=== PATIENT | male | born 1955 | race Caucasian/White ===

== ENCOUNTER 2018-05-28 08:51 | Inpatient (IN) | payer OTHER, MEDICAID, MEDICARE ==
[~2018-05-28 08:51] MED LIST: CEFAZOLIN 2 GM/50 ML (PMX) 50 ML IVPB
[2018-05-28] MEDS ORDERED: FENTAnyl 50 MCG/ML VIAL (10:40)
[2018-05-28] MEDS ORDERED: ROCURONIUM 50 MG INJ ×2 (10:40→11:16)
[2018-05-28] MEDS ORDERED: MIDAZOLAM 1 MG/ML 2 ML INJ (10:40)
[2018-05-28] MEDS ORDERED: PROPOFOL 20 ML (10:40)
[2018-05-28] MEDS ORDERED: METOCLOPRAMIDE 10 MG INJ (10:40)
[2018-05-28] MEDS ORDERED: ONDANSETRON 4 MG INJ (10:40)
[2018-05-28] MEDS ORDERED: ROPIVACAINE 0.5 % 30 ML VIAL (10:41)
[2018-05-28] MEDS ORDERED: CEFAZOLIN 1 GM INJ (10:48)
[2018-05-28] MEDS ORDERED: GLYCOPYRROLATE 0.4 MG INJ (11:16)
[2018-05-28] MEDS ORDERED: NEOSTIGMINE 3 MG/3 ML SYRINGE ×2 (11:16→13:33)
[2018-05-28] MEDS ORDERED: HYDROmorphONE 2 MG/ML SYG (11:29)
[2018-05-28] MEDS: BUPIVACAINE 0.5%/EPI (SDV) 30 ML INJ (11:37)
[2018-05-28] MEDS: LIDOCAINE 1% (MPF) 30 ML INJ (11:38)
[2018-05-28] MEDS: POLYMYXIN/BACITRACIN 1L IRRIG (11:38)
[2018-05-28] MEDS ORDERED: HYDROmorphONE 1 MG/5 ML IV SYRINGE IV ×2 (13:00)
[2018-05-28] MEDS ORDERED: MEPERIDINE 25 MG INJ IV (13:00)
[2018-05-28] MEDS ORDERED: ONDANSETRON 4 MG INJ IV ×2 (13:00→16:30)
[2018-05-28] MEDS ORDERED: DIPHENHYDRAMINE 50 MG INJ IV (13:00)
[2018-05-28] MEDS ORDERED: KETOROLAC 30 MG INJ (13:33)
[2018-05-28] MEDS ORDERED: HYDROCODONE/APAP (5/325) TAB PO ×2 (15:00→16:30)
[2018-05-28] MEDS: HYDROmorphONE 1 MG/5 ML IV SYRINGE IV (15:22)
[2018-05-28] MEDS ORDERED: MAGNESIUM HYDROXIDE 30ML CUP PO (16:30)
[2018-05-28] MEDS ORDERED: ACETAMINOPHEN 325 MG TAB PO (16:30)
[2018-05-28] MEDS ORDERED: NACL 0.9% 3 ML SYG IV (16:30)
[2018-05-28] MEDS ORDERED: GLUCAGON 1 MG INJ IM (17:00)
[2018-05-28] MEDS ORDERED: GLUCOSE GEL 15 GRAM TUBE PO ×2 (17:00)
[2018-05-28] MEDS ORDERED: GLUCOSE GEL 15 GRAM TUBE BUCCAL (17:00)
[2018-05-28] MEDS ORDERED: DEXTROSE 50% 50 ML SYRINGE IV ×2 (17:00)
[2018-05-28] MEDS: FINASTERIDE 5 MG TAB PO (17:39)
[2018-05-28] MEDS: INSULIN ASPART [NOVOLOG] 3 ML PEN SC ×2 (17:39→20:39)
[2018-05-28] MEDS: TAMSULOSIN (SR) 0.4 MG CAP PO (17:39)
[2018-05-28] MEDS: PANTOPRAZOLE (EC) 40 MG TAB PO (17:39)
[2018-05-28] MEDS: HYDROmorphONE 0.5 MG/0.5 ML SYG IV (20:31)
[2018-05-28] MEDS: ATORVASTATIN 10 MG TAB PO (20:39)
[2018-05-28] MEDS: GABAPENTIN 300 MG CAP PO (20:40)
[2018-05-29] MEDS: HYDROmorphONE 0.5 MG/0.5 ML SYG IV ×2 (01:24→08:30)
[2018-05-29] MEDS: PANTOPRAZOLE (EC) 40 MG TAB PO (06:00)
[2018-05-29 06:09] LABS: ADD MAN DIFF? NO
[2018-05-29 06:18] LABS: BASOPHILS % 0.2 % (0.0-2.0); HEMATOCRIT 43.5 % (42.0-52.0); HEMOGLOBIN 15.3 g/dl (14.0-18.0); MEAN CORPUSCULAR HEMOGLOBIN 31.3 pg (29.0-33.0); MEAN CORPUSCULAR HGB CONC 35.2 g/dl (32.0-37.0); MEAN PLATELET VOLUME 10.2 fl (7.4-10.4); MONOCYTES % 7.9 % (0.0-11.0); NEUTROPHIL # 10.1 10^3/ul (1.6-7.5); NEUTROPHILS % 83.6 % (39.0-77.0); PLATELET COUNT 222 10^3/UL (140-415); RED BLOOD COUNT 4.89 10^6/ul (4.70-6.10); RED CELL DISTRIBUTION WIDTH 13.2 % (11.5-14.5)
[2018-05-29 06:18] LABS: WHITE BLOOD COUNT 12.1 10^3/ul (4.8-10.8)
[2018-05-29 06:50] LABS: MAGNESIUM 1.6 mg/dl (1.7-2.5)
[2018-05-29 07:00] LABS: ALANINE AMINOTRANSFERASE 29 IU/L (13-69); ALBUMIN 3.8 g/dl (3.3-4.9); ALBUMIN/GLOBULIN RATIO 1.35; ALKALINE PHOSPHATASE 63 IU/L (42-121); ANION GAP 16 (8-16); ASPARTATE AMINO TRANSFERASE 30 IU/L (15-46); BILIRUBIN,INDIRECT 0.9 mg/dl (0-1.1); BILIRUBIN,TOTAL 0.9 mg/dl (0.2-1.3); BLOOD UREA NITROGEN 16 mg/dl (7-20); CALCIUM 8.6 mg/dl (8.4-10.2); CARBON DIOXIDE 27 mmol/L (21-31); CHLORIDE 103 mmol/L (97-110); CREATININE 0.64 mg/dl (0.61-1.24); GLUCOSE 137 mg/dl (70-220); POTASSIUM 4.7 mmol/L (3.5-5.1); SODIUM 141 mmol/L (135-144); TOTAL PROTEIN 6.6 g/dl (6.1-8.1)
[2018-05-29 07:54] LABS: HEMOGLOBIN A1C 6.4 % (0-5.9)
[2018-05-29] MEDS: INSULIN ASPART [NOVOLOG] 3 ML PEN SC ×4 (08:00→21:00)
[2018-05-29] MEDS: TAMSULOSIN (SR) 0.4 MG CAP PO (08:29)
[2018-05-29] MEDS: GABAPENTIN 300 MG CAP PO ×3 (08:29→21:55)
[2018-05-29] MEDS: FINASTERIDE 5 MG TAB PO (08:29)
[2018-05-29] MEDS: MAGNESIUM OXIDE 400 MG TAB PO (12:32)
[2018-05-29] MEDS: HYDROCODONE/APAP (5/325) TAB PO ×2 (17:29→21:55)
[2018-05-29] MEDS: ATORVASTATIN 10 MG TAB PO (21:00)
[2018-05-30 06:11] LABS: MAGNESIUM 1.9 mg/dl (1.7-2.5)
[2018-05-30] MEDS: PANTOPRAZOLE (EC) 40 MG TAB PO (06:21)
[2018-05-30] MEDS: INSULIN ASPART [NOVOLOG] 3 ML PEN SC ×4 (08:00→20:19)
[2018-05-30] MEDS: GABAPENTIN 300 MG CAP PO ×3 (08:20→20:25)
[2018-05-30] MEDS: TAMSULOSIN (SR) 0.4 MG CAP PO (08:20)
[2018-05-30] MEDS: FINASTERIDE 5 MG TAB PO (08:20)
[2018-05-30] MEDS: HYDROCODONE/APAP (5/325) TAB PO ×2 (12:36→20:25)
[2018-05-30] MEDS: ATORVASTATIN 10 MG TAB PO (20:22)
[2018-05-31] MEDS: PANTOPRAZOLE (EC) 40 MG TAB PO (05:51)
[2018-05-31] MEDS: HYDROCODONE/APAP (5/325) TAB PO (06:01)
[2018-05-31 06:34] LABS: ADD MAN DIFF? NO
[2018-05-31 06:43] LABS: WHITE BLOOD COUNT 9.3 10^3/ul (4.8-10.8)
[2018-05-31 06:43] LABS: BASOPHILS % 0.4 % (0.0-2.0); EOSINOPHILS # 0.3 10^3/ul (0.0-0.5); EOSINOPHILS % 3.5 % (0.0-7.0); LYMPHOCYTES # 1.6 10^3/ul (0.8-2.9); LYMPHOCYTES % 17.6 % (15.0-51.0); MEAN CORPUSCULAR HGB CONC 34.1 g/dl (32.0-37.0); MEAN PLATELET VOLUME 10.2 fl (7.4-10.4); MONOCYTE # 1.1 10^3/ul (0.3-0.9); MONOCYTES % 12.1 % (0.0-11.0); NEUTROPHIL # 6.1 10^3/ul (1.6-7.5); NEUTROPHILS % 66.2 % (39.0-77.0); PLATELET COUNT 198 10^3/UL (140-415); RED BLOOD COUNT 4.66 10^6/ul (4.70-6.10); RED CELL DISTRIBUTION WIDTH 13.4 % (11.5-14.5)
[2018-05-31 07:07] LABS: MAGNESIUM 1.9 mg/dl (1.7-2.5)
[2018-05-31 07:21] LABS: ALBUMIN 3.6 g/dl (3.3-4.9); ANION GAP 11 (8-16); BLOOD UREA NITROGEN 13 mg/dl (7-20); CALCIUM 8.9 mg/dl (8.4-10.2); CARBON DIOXIDE 29 mmol/L (21-31); CHLORIDE 104 mmol/L (97-110); CREATININE 0.65 mg/dl (0.61-1.24); GLUCOSE 113 mg/dl (70-220); PHOSPHORUS 3.4 mg/dl (2.5-4.9); POTASSIUM 3.9 mmol/L (3.5-5.1); SODIUM 140 mmol/L (135-144)
[2018-05-31] MEDS: INSULIN ASPART [NOVOLOG] 3 ML PEN SC ×4 (08:00→21:00)
[2018-05-31] MEDS: GABAPENTIN 300 MG CAP PO ×3 (08:15→21:23)
[2018-05-31] MEDS: TAMSULOSIN (SR) 0.4 MG CAP PO (08:15)
[2018-05-31] MEDS: FINASTERIDE 5 MG TAB PO (08:15)
[2018-05-31] MEDS: ATORVASTATIN 10 MG TAB PO (21:00)
[2018-06-01] MEDS: HYDROCODONE/APAP (5/325) TAB PO (01:34)
[2018-06-01] MEDS: DOCUSATE SODIUM 100 MG CAP PO ×2 (05:33→15:59)
[2018-06-01] MEDS: PANTOPRAZOLE (EC) 40 MG TAB PO (05:33)
[2018-06-01 05:56] LABS: ADD MAN DIFF? NO
[2018-06-01 06:00] LABS: BASOPHILS % 0.5 % (0.0-2.0); EOSINOPHILS # 0.5 10^3/ul (0.0-0.5); EOSINOPHILS % 5.9 % (0.0-7.0); HEMATOCRIT 40.6 % (42.0-52.0); HEMOGLOBIN 13.9 g/dl (14.0-18.0); LYMPHOCYTES # 1.8 10^3/ul (0.8-2.9); LYMPHOCYTES % 20.9 % (15.0-51.0); MEAN CORPUSCULAR HEMOGLOBIN 29.7 pg (29.0-33.0); MEAN CORPUSCULAR HGB CONC 34.2 g/dl (32.0-37.0); MEAN CORPUSCULAR VOLUME 86.8 fl (82.0-101.0); MEAN PLATELET VOLUME 10.1 fl (7.4-10.4); MONOCYTE # 0.8 10^3/ul (0.3-0.9); NEUTROPHIL # 5.3 10^3/ul (1.6-7.5); NEUTROPHILS % 62.2 % (39.0-77.0); PLATELET COUNT 227 10^3/UL (140-415); RED BLOOD COUNT 4.68 10^6/ul (4.70-6.10); RED CELL DISTRIBUTION WIDTH 13.5 % (11.5-14.5)
[2018-06-01 06:00] LABS: WHITE BLOOD COUNT 8.4 10^3/ul (4.8-10.8)
[2018-06-01 07:02] LABS: ALBUMIN 3.6 g/dl (3.3-4.9); ANION GAP 15 (8-16); BLOOD UREA NITROGEN 15 mg/dl (7-20); CALCIUM 8.9 mg/dl (8.4-10.2); CARBON DIOXIDE 27 mmol/L (21-31); CHLORIDE 103 mmol/L (97-110); CREATININE 0.66 mg/dl (0.61-1.24); GLUCOSE 116 mg/dl (70-220); PHOSPHORUS 4.6 mg/dl (2.5-4.9); POTASSIUM 3.7 mmol/L (3.5-5.1); SODIUM 141 mmol/L (135-144)
[2018-06-01] MEDS: INSULIN ASPART [NOVOLOG] 3 ML PEN SC ×3 (08:00→17:39)
[2018-06-01] MEDS: FINASTERIDE 5 MG TAB PO (08:29)
[2018-06-01] MEDS: TAMSULOSIN (SR) 0.4 MG CAP PO (08:29)
[2018-06-01] MEDS: GABAPENTIN 300 MG CAP PO ×2 (08:29→12:43)
[2018-06-01] MEDS: SENNA TAB PO (15:58)
[2018-06-01] MEDS: MAGNESIUM HYDROXIDE 30ML CUP PO (15:58)
== END 2018-06-01 20:00 | disposition home or self-care (01) | DRG 337 ==
LOC: SDS 08:51 → PP2 16:12 → SDS 16:44 → PP2 16:39
PROVIDERS: Internal Medicine
PROC: 0WUF0JZ Supplement Abdominal Wall with Synthetic Substitute, Open Approach (ICD-10-PCS; principal; 2018-05-28 10:30)
PROC: 0DN80ZZ Release Small Intestine, Open Approach (ICD-10-PCS; 2018-05-28 10:30)
PROC: 0WQF0ZZ Repair Abdominal Wall, Open Approach (ICD-10-PCS; 2018-05-28 10:30)
PROC: 0WPF0JZ Removal of Synthetic Substitute from Abdominal Wall, Open Approach (ICD-10-PCS; 2018-05-28 10:30)
PROC: 0HB7XZZ Excision of Abdomen Skin, External Approach (ICD-10-PCS; 2018-05-28 10:30)
DX: K43.2 Incisional hernia without obstruction or gangrene (principal); K66.0 Peritoneal adhesions (postprocedural) (postinfection); N40.0 Benign prostatic hyperplasia without lower urinary tract symptoms; D72.829 Elevated white blood cell count, unspecified; E78.5 Hyperlipidemia, unspecified; E11.40 Type 2 diabetes mellitus with diabetic neuropathy, unspecified; E66.9 Obesity, unspecified; Z68.30 Body mass index [BMI] 30.0-30.9, adult; Z79.84 Long term (current) use of oral hypoglycemic drugs
CPT/HCPCS: 80053; 80069; 82962; 83036; 83735; 85025; 87086; 88304

== ENCOUNTER 2018-06-05 17:04 | Emergency (ER) | payer OTHER, MEDICAID | END 2018-06-05 18:46 | disposition home or self-care (01) | LOC: E/R 17:04 | DX: T85.838A Hemorrhage due to other internal prosthetic devices, implants and grafts, initial encounter (principal); Y82.8 Other medical devices associated with adverse incidents; Z96.651 Presence of right artificial knee joint; Z79.84 Long term (current) use of oral hypoglycemic drugs | CPT/HCPCS: 99282 ==